=== PATIENT | female | born 1995 | race Caucasian/White ===

== ENCOUNTER 2018-05-31 10:34 | Emergency (ER) | payer BC ==
[2018-05-31 10:55] VITALS: BP 117/74
--- NOTE | 2018-05-31 11:08 | UC ---
Throat Pain/Nasal Mehdi HPI - HPI Summary HPI Summary: Pt presents with c/o ST X 4 days. Pt denies fever, has occasional cough. Denies hx of mono - History of Current Complaint Chief Complaint: UCGeneralIllness Stated Complaint: ST,COUGH,FEVER Time Seen by Provider: 05/31/18 10:55 Hx Obtained From: Patient Hx Last Menstrual Period: 05/25/18 ?: No Onset/Duration: Sudden Onset, Lasting Days, Still Present Severity: Moderate Pain Intensity: 5 Cough: Nonproductive Associated Signs & Symptoms: Positive: Dysphagia - Epiglottits Risk Factors Epiglottis Risk Factors: Negative - Allergies/Home Medications Allergies/Adverse Reactions: Allergies Allergy/AdvReac Type Severity Reaction Status Date / Time No Known Allergies Allergy Verified 05/31/18 10:50 Home Medications: Home Medications Cold&Cough Gel Cap 1 dose PO ONCE 05/31/18 [History Confirmed 05/31/18] Ibuprofen TAB* [Advil TAB*] 400 mg PO Q6H PRN 05/31/18 [History Confirmed ] Levonorgestrel-Ethin Estradiol [Lutera 0.1-20 mg-Mcg] 1 tab PO DAILY 05/31/18 [ History Confirmed 05/31/18] PMH/Surg Hx/FS Hx/Imm Hx Previously Healthy: Yes - Surgical History Surgical History: None - Family History Known Family History: Positive: Cardiac Disease - Social History Occupation: Student Lives: Dormitory/Roommates Alcohol Use: Occasionally Substance Use Type: None Smoking Status (MU): Never Smoked Tobacco Have You Smoked in the Last Year: No - Immunization History Vaccination Up to Date: Yes Review of Systems All Other Systems Reviewed And Are Negative: Yes Constitutional: Positive: Fatigue Skin: Positive: Negative Eyes: Positive: Negative ENT: Positive: Sore Throat Respiratory: Positive: Cough Cardiovascular: Positive: Negative Gastrointestinal: Positive: Negative Genitourinary: Positive: Negative Motor: Positive: Negative Neurovascular: Positive: Negative Musculoskeletal: Positive: Negative Neurological: Positive: Negative Psychological: Positive: Negative Is Patient Immunocompromised?: No Physical Exam Triage Information Reviewed: Yes Appearance: Ill-Appearing Vital Signs: Initial Vital Signs Temp 98.9 F 05/31/18 10:52 Pulse 95 05/31/18 10:52 Resp 14 05/31/18 10:52 BP 117/74 05/31/18 10:52 Pulse Ox 97 12/12/18 10:52 Vital Signs Reviewed: Yes Eye Exam: Normal ENT: Positive: Pharyngeal erythema, Tonsillar swelling - slight Dental Exam: Normal Neck exam: Normal Respiratory Exam: Normal Cardiovascular Exam: Normal Musculoskeletal Exam: Normal Neurological Exam: Normal Psychological Exam: Normal Skin Exam: Normal Diagnostics - Laboratory Diagnostic Studies Completed/Ordered: rapid strep: negative Throat Pain/Nasal Course/Dx - Differential Dx/Diagnosis Differential Diagnosis/HQI/PQRI: Pharyngitis, Tonsillitis Provider Diagnosis: Pharyngitis Discharge - Sign-Out/Discharge Documenting (check all that apply): Patient Departure All imaging exams completed and their final reports reviewed: No Studies - Discharge Plan Condition: Stable Disposition: HOME Patient Education Materials: Pharyngitis (ED), Viral Syndrome (ED) Referrals: No Primary Care Phys,NOPCP [Primary Care Provider] - [facility] [Outside] - If Needed - Billing Disposition and Condition Condition: STABLE Disposition: Home
== END 2018-05-31 11:14 | disposition home or self-care (01) ==
LOC: UCCORT 10:34
DX: J02.9 Acute pharyngitis, unspecified (principal)
CPT/HCPCS: 87651; 99201; G0463